=== PATIENT | male | born 1960 | race Caucasian/White ===

== ENCOUNTER 2019-02-04 14:01 | Emergency (ER) | payer OTHER ==
[~2019-02-04] VITALS: Ht 175.3 cm; Wt 78.5 kg
[2019-02-04] MEDS ORDERED: RHINOCORT ALL8.43 ML NAS (14:48)
== END 2019-02-04 15:00 | disposition home or self-care (01) ==
LOC: ED 14:01
DX: H74.8X3 Other specified disorders of middle ear and mastoid, bilateral (principal)
CPT/HCPCS: 99282